=== PATIENT | female | born 1970 | race Caucasian/White ===

== ENCOUNTER 2017-08-15 08:39 | Emergency (ER) | payer OTHER ==
[~2017-08-15] VITALS: Ht 165.1 cm; Wt 85.0 kg
[2017-08-15 08:40] VITALS: BP 122/80; PULSE 72; RESP 20; TEMP 98.4; O2SAT 99
--- NOTE | 2017-08-15 09:01 | PD ---
HPI Chief Complaint: Fall Time Seen by Provider: 09:01 Travel History International Travel<30 days: No Contact w/Intl Traveler<30days: No Traveled to known affect area: No History of Present Illness HPI Patient comes in complaining of low back and right knee pain that began 4 days ago after slipping fall. Patient states that she slipped on ceramic tile outside twisting her knee and landing on her right hip causing pain in her right low back. Patient reports pain is shooting like in nature and radiates back and forth between her knee and her low back. Patient taking Motrin for symptomatic relief. Pain is worse with certain movement. Denies hitting her head, loss of consciousness, loss or change in bowel or bladder, numbness or tingling anywhere, chest pain, shortness breath, abdominal pain, fevers, or IV drug use. PFSH Past Medical History Medical History: Denies Significant Hx ?: Not Past Surgical History Hysterectomy: Yes Social History Tobacco Use: No Substance Use: No Allergies-Medications (Allergen,Severity, Reaction): Coded Allergies: No Known Allergies (Unverified , 08/15/17) Reported Meds & Prescriptions Reported Meds & Active Scripts Active Flexeril (Cyclobenzaprine HCl) 10 Mg Tab 10 Mg PO Q8HR PRN Naprosyn (Naproxen) 500 Mg Tab 500 Mg PO Q12HR PRN Reported Ibuprofen 200 Mg Cap 200 Mg PO Q4H PRN Review of Systems Except as stated in HPI: all other systems reviewed are Neg Physical Exam Narrative GENERAL: Well-developed, overly nourished, in no acute distress, and non-ill appearing. SKIN: Focused skin assessment warm and dry. HEAD: Atraumatic. Normocephalic. EYES: Pupils equal and round. EOMI. No scleral icterus. No injection or drainage. ENT: No nasal bleeding or discharge. Mucous membranes pink and moist. NECK: Trachea midline. Supple. No nuclear rigidity. CARDIOVASCULAR: Dorsal pulses 2+, nontender, equal bilaterally. RESPIRATORY: No accessory muscle use. No respiratory distress. MUSCULOSKELETAL: No obvious deformities. No clubbing. No cyanosis. No edema. Full range of motion. No tenderness or crepitus or midline lumbar spine. Patient reports tenderness to palpation right lateral lumbar muscles. Knee: Negative patellar apprehension, varus and valgus maneuvers, anterior draw test, and Altagracia test. Pulses equal BL distal to injury. Capillary refill less than 2 seconds distal to injury and equal BL. FROM distal to injury and equal BL. Strength distal to injury equal BL. NV intact distal to injury. Dorsal pulses equal BL. Sensation equal BL 1st web space. Patient reports tenderness to palpation right posterior and medial aspect anteriorly to palpation. NEUROLOGICAL: Awake and alert. No obvious cranial nerve deficits. Motor grossly within normal limits. Normal speech. PSYCHIATRIC: Appropriate mood and affect; insight and judgment normal. Data Data Last Documented VS Vital Signs Date Time Temp Pulse Resp B/P (MAP) Pulse Ox O2 Delivery O2 Flow Rate FiO2 08/15/17 09:24 08/15/17 08:40 98.4 72 20 99 Room Air Orders Orders Splint Or Brace Apply/Monitor (08/15/17 09:01) [facility] Medical Decision Making Medical Screen Exam Complete: Yes Emergency Medical Condition: Yes Differential Diagnosis Fracture, strain, contusion, dislocation, other Narrative Course Patient presents with apparent back strain. The patient presented complaining of back pain. There was history of preceding trauma. The patients pain complaint and exam were consistent with soft tissue injury and not consistent with bony injury. There were no subjective or objective findings to support radiographic evaluation. There is no midline spine pain or tenderness and no significant distracting injury to suggest associated spine injury. The patient has no neurological complaints. The patient has been behaving normally and no notable altered mental status. Beck score of 15. The patients neurological exam is normal with normal motor and sensory. There is no saddle paresthesias reported and no bowel or bladder incontinence or retention. Clinical suspicion, plan of care and management was discussed with the patient. The patient was instructed to follow up with their health care provider. The patient was also instructed to return if the pain worsened, changed, or developed weakness or bowel or bladder trouble. The patient agreed with plan. . There was no evidence to support genitourinary etiology. There is also no evidence to suggest vascular pathology such as AAA dissection. No fevers or other evidence to suspect infectious processes, abscess etc. There is no clinical evidence for knee or leg fracture. There is no clinical evidence to suspect bony injury by exam. No obvious ligamental injury or obvious internal derangement is noted at this time. The anterior, posterior, lateral and medial collateral ligaments are intact and symmetrical. The distal extremity appears neurovascularly intact, without evidence of neurovascular injury nor compartment syndrome. Tendon exam also was intact. The effected limb was immobilized. The patient was discharged on pain medication along with sprain and splint care instructions and given warnings for vascular compromise. The patient is to follow up with Orthopedics. The patient agrees with plan. Patient in no obvious distress upon re-evaluation. Patient was offered x-rays, but declined at this time. Patient was asked if they wanted to speak to my attending, which the patient did not wish to do at this time. Any questions/ concerns in reference to patient diagnosis/condition discussed and clarified prior to patient's discharge. Reinforced sheer importance of close follow up with patient's primary physician or primary care clinic. Instructed patient to return to ED immediately, if symptoms return/worsen. Pt showed understanding of above instructions. Further instructions and recommendations were detailed in discharge paperwork. Pt ambulated without difficulty out of ED at discharge. Diagnosis Primary Impression: Low back strain Qualified Codes: S39.012A - Strain of muscle, fascia and tendon of lower back , initial encounter Additional Impression: Right knee sprain Qualified Codes: S83.91XA - Sprain of unspecified site of right knee, initial encounter Referrals: Angus Johnson MD,Kee Pete MD [facility] Patient Instructions: General Instructions, Knee Immobilizer (DC), Knee Pain ( GEN), Low Back Strain (ED), Lower Back Exercises (ED) Additional Instructions: Follow-up with your primary care physician and/or orthopedics next week for reevaluation. Take all medication as prescribed. Return to the emergency department if symptoms get worse. Med/Other Pt SpecificInfo: Prescription(s) given Scripts Cyclobenzaprine (Flexeril) 10 Mg Tab 10 MG PO Q8HR Y for MUSCLE PAIN, #15 TAB 0 Refills Prov: Polly Brooks MD 08/15/17 Naproxen (Naprosyn) 500 Mg Tab 500 MG PO Q12HR Y for PAIN SCALE 1 TO 10, #14 TAB 0 Refills Prov: Polly Brooks MD 08/15/17 Disposition: 01 DISCHARGE HOME Condition: Stable [place]i [place] Aug 15, 2017 09:01
[2017-08-15] MEDS ORDERED: IBUP200C PO (09:02)
[2017-08-15] MEDS ORDERED: CYCL1TAB29 PO (09:08)
[2017-08-15] MEDS ORDERED: NAPR500 PO (09:08)
== END 2017-08-15 09:26 | disposition home or self-care (01) ==
LOC: NETRI 08:39 → EDTENT 09:26
DX: S39.012A Strain of muscle, fascia and tendon of lower back, initial encounter (principal); S83.91XA Sprain of unspecified site of right knee, initial encounter; W01.0XXA Fall on same level from slipping, tripping and stumbling without subsequent striking against object, initial encounter; Y92.009 Unspecified place in unspecified non-institutional (private) residence as the place of occurrence of the external cause
CPT/HCPCS: 99282; L1830